=== PATIENT | male | born 1955 | race Caucasian/White ===

== ENCOUNTER 2017-11-06 07:09 | Outpatient (CLI) ==
--- NOTE | 2017-11-06 09:13 | US ---
EXAM: Right upper quadrant abdominal ultrasound. History: Elevated bilirubin Technique: Multiple sonographic images through the abdomen were obtained. Color duplex Doppler was used to interrogate vascular flow. Findings: Technically difficult examination due to body habitus. Pancreas was not well visualized. No abdominal ascites. Previous cholecystectomy. The liver measures 20 cm in length and is echogenic. No focal liver lesions identified sonographical ly. There is antegrade flow within the main portal vein. Limited visualization of the right kidney demonstrates parapelvic cysts with suggestion of septations with the largest measuring 4 cm. Common bile duct measures 0.5 cm in caliber. Impression: 1. Enlarged fatty liver. 2. Right renal parapelvic cysts with possible septations. Recommend further evaluation with CT or MRI renal mass protocol. 3. Previous cholecystectomy
--- NOTE | 2017-11-06 09:14 | US ---
EXAM: Abdominal ultrasound limited HISTORY: Abnormal labs to evaluate the spleen COMPARISON: Ultrasound 11/06/2017 TECHNIQUE: Sonographic and limited Doppler evaluation of the left upper quadrant was performed. FINDINGS: The spleen is unremarkable in appearance and is upper limit of normal in size measuring 12 .6 cm in length. The left kidney measures 12.7 x 6.2 x 5.2 cm with cortical thickness of 2.5 cm. IMPRESSION: 1. Spleen at upper limit of normal for size with no focal splenic abnormality. 2. Left kidney is unremarkable.
== END 2017-11-06 07:10 | disposition home or self-care (01) ==
LOC: RAD 07:09
PROVIDERS: ATTEND Family Medicine
DX: R17 Unspecified jaundice (principal)

== ENCOUNTER 2018-04-22 10:45 | Day surgery (SDC) ==
[2018-04-22] MEDS ORDERED: SUBLIMAZE ONE (12:09)
[2018-04-22] MEDS ORDERED: VERSED ONE (12:09)
[2018-04-22] MEDS ORDERED: DIPRIVAN 20 ML VIAL IVP ONE (12:09)
[2018-04-22 12:12] VITALS: TEMP 98.5
[2018-04-22 15:38] VITALS: BP 112/56
--- NOTE | 2018-04-23 11:13 | OP ---
PROCEDURE: COLONOSCOPY TO THE CECUM WITH SNARE POLYPECTOMY. ENDOSCOPIST: Roxanne SONI M.D. INDICATION: HISTORY OF POLYPS INSTRUMENT: [employer]-190. MEDICATION: PER ANESTHESIA. PROCEDURE: The patient was positioned for colonoscopy. The digital rectal exam was negative. The colonoscope was inserted through the anus and advanced to the cecum. The cecum was identified using the ileocecal valve and the appendiceal orifice as landmarks. The scope was slowly withdrawn through an adequately prepped colon. [place] Bowel Prep Score equal 9. Scattered diverticulosis throughout the colon. Small polyps at 70cm removed using cold snare polypectomy. The retroflex exam was otherwise negative. Withdraw time 10 minutes and 14 seconds. PLAN: 1. Repeat colonoscopy in 5 years. CC: Dr. Wade ROMERO
== END 2018-04-22 13:00 | disposition home or self-care (01) ==
LOC: SURG 10:45
PROVIDERS: ATTEND Internal Medicine Gastroenterology
DX: K57.30 Diverticulosis of large intestine without perforation or abscess without bleeding (principal); K63.5 Polyp of colon; Z86.010 Personal history of colon polyps